=== PATIENT | female | born 1950 ===

== ENCOUNTER 2021-01-21 12:22 | Emergency (ER) | payer OTHER ==
[~2021-01-21] VITALS: Ht 172.7 cm; Wt 77.1 kg
[2021-01-21 14:25] VITALS: BP 118/66
[2021-01-21] MEDS ORDERED: ACETAMINOPHEN 500 MG TAB PO ONE ×2 (15:21→15:30)
== END 2021-01-21 15:46 | disposition home or self-care (01) ==
LOC: ER 12:22
DX: S70.02XA Contusion of left hip, initial encounter (principal); S60.212A Contusion of left wrist, initial encounter; M16.12 Unilateral primary osteoarthritis, left hip; E11.9 Type 2 diabetes mellitus without complications; E78.5 Hyperlipidemia, unspecified; Z88.1 Allergy status to other antibiotic agents; Z88.2 Allergy status to sulfonamides; W18.39XA Other fall on same level, initial encounter; Y93.89 Activity, other specified; Y92.89 Other specified places as the place of occurrence of the external cause; Y99.8 Other external cause status
CPT/HCPCS: 73110; 73502